=== PATIENT | female | born 1995 | race Caucasian/White ===

== ENCOUNTER 2021-02-01 14:18 | Emergency (ER) | payer OTHER, SELFPAY ==
[2021-02-01 14:25] VITALS: BP 103/64; PULSE 76; RESP 14; TEMP 37.3; O2SAT 100
--- NOTE | 2021-02-01 14:46 | ED.SKABFB ---
HPI - Skin/Abscess/Foreign Bdy General Chief complaint: Skin/Abscess/Foreign Body Stated complaint: bug bite or sting Time Seen by Provider: 02/01/21 14:31 Source: patient and RN notes reviewed Mode of arrival: ambulatory Limitations: no limitations History of Present Illness HPI narrative: Patient presents today complaining of a possible wasp sting to her right lower leg that was sustained yesterday. Patient applied clear fingernail cypriot to help with the itching, which should provide some relief. She reports some burning surrounding the sting. She has not tried any other [id number] interventions prior to arrival. complaint: insect bite/sting Related Data Home Medications Medication Instructions Recorded Confirmed escitalopram oxalate 10 mg PO DAILY 02/01/21 02/01/21 vit-ferrous sulfat-FA 1 tablet PO DAILY 02/01/21 02/01/21 [] Allergies Allergy/AdvReac Type Severity Reaction Status Date / Time No Known Allergies Allergy Verified 02/01/21 14:33 Review of Systems Review of Systems: CONSTITUTIONAL: Denies body aches, fever, chills, or sweats. EYES: Denies visual changes, redness, or discharge. ENT: Denies rhinorrhea, congestion, sore throat, or otalgia. CARDIOVASCULAR: Denies chest pain, palpitations, or edema. RESPIRATORY: Denies cough or dyspnea. GASTROINTESTINAL: Denies abdominal pain, nausea, vomiting, or diarrhea. GENITOURINARY: Denies dysuria or hematuria. SKIN: Denies rash, itching. + Insect sting to right lower leg MUSCULOSKELETAL: Denies back pain, joint pain, or myalgia. NEUROLOGIC: Denies headache, numbness, tingling, or weakness. PSYCH: Denies depression or anxiety. PMFSH Comments At time of signature, I have reviewed and agree with nursing past medical, surgical, social and family history unless otherwise noted. Please see nursing chart for further information. There is no relevant family history pertinent to the presenting complaint Exam Narrative: GENERAL: Well-appearing, well-nourished, and in no acute distress. HEAD: Normocephalic, atraumatic. EYES: EOMI. No redness or drainage. Conjunctivae normal. ENT: Mucous membranes pink and moist. NECK: Normal AROM. CHEST: No respiratory distress. EXTREMITIES: Normal range of motion. No edema. SKIN: Warm, dry, no rash. Capillary refill normal. Normal skin turgor. 0.5 x 1 cm area of erythema and induration to the right lateral lower leg with surrounding 6 x 7 cm area of localized edema and erythema. No fluctuance noted. Nontender to palpation. NEURO: No focal deficits. Alert and oriented x3. Gait steady. PSYCH: Normal affect. No signs of depression or anxiety. Course Vital Signs Vital signs: Vital Signs Temperature 99.2 F 02/01/21 14:25 Pulse Rate 76 02/01/21 14:25 Respiratory Rate 14 02/01/21 14:25 Blood Pressure 103/64 02/01/21 14:25 Pulse Oximetry 100 02/01/21 14:25 Temperature 99.2 F 02/01/21 14:25 Pulse Rate 76 02/01/21 14:25 Respiratory Rate 14 02/01/21 14:25 Blood Pressure 103/64 02/01/21 14:25 Pulse Oximetry 100 02/01/21 14:25 Reviewed MDM - Skin/Abscess/Foreign Bdy Differential Diagnosis Differential diagnosis: Likely urticaria, cellulitis, insect bites, impetigo and contact dermatitis Critical Care Time Critical Care Time Critical Care Time: No Discharge Plan Discharge Clinical Impression: Insect sting Qualifiers: Encounter type: initial encounter Injury intent: accidental or unintentional Qualified Code(s): T63.481A - Toxic effect of venom of other arthropod, accidental (unintentional), initial encounter Patient Disposition: Home, Self-Care Condition: Stable Instructions: Insect Bite or Sting (ED) Additional Instructions: Please use the triamcinolone cream on your insect sting as prescribed. Take some Benadryl to help with the burning, itching, and swelling. Follow-up with your PCP with any concerns. Patient Language: Wolof P
== END 2021-02-01 14:52 | disposition home or self-care (01) ==
PROVIDERS: Emergency Provider Nurse Practitioner
DX: T63.461A Toxic effect of venom of wasps, accidental (unintentional), initial encounter (principal); F41.9 Anxiety disorder, unspecified; F32.9 Major depressive disorder, single episode, unspecified
CPT/HCPCS: 99203; G0463

== ENCOUNTER 2022-04-29 16:19 | Emergency (ER) | payer OTHER, SELFPAY ==
[2022-04-29 16:26] VITALS: BP 129/72; PULSE 85; RESP 14; TEMP 36.9; O2SAT 100
--- NOTE | 2022-04-29 16:28 | ED.NAVMDI ---
HPI - Nausea/Vomiting/Diarrhea General Chief complaint: Nausea/Vomiting/Diarrhea Stated complaint: abdominal pain Time Seen by Provider: 04/29/22 16:28 Source: patient and RN notes reviewed History of Present Illness HPI Narrative: patient is a 27-year-old female who presents to the Urgent Care with complaints of abdominal discomfort. Patient states that she has chronic constipation has been sometime since she has had normal bowel movement. Patient states the symptoms are consistent with her constipation past. States that it started 3 days ago and she has been taking Ex-Lax. Patient states that she has not had any fevers, nausea, vomiting or diarrhea. No other acute complaints. No acute distress noted. Patient aware of the plan care. Some parts of this dictation were generated by voice recognition software and may contain typographical and/or grammatical inaccuracies. Related Data Home Medications Medication Instructions Recorded Confirmed escitalopram oxalate 10 mg tablet 10 mg PO DAILY 02/01/21 02/01/21 Allergies Allergy/AdvReac Type Severity Reaction Status Date / Time No Known Allergies Allergy Verified 02/01/21 14:33 Review of Systems Review of Systems: CONSTITUTIONAL: Denies fever, chills, or sweats. EYES: Denies visual changes, redness, or discharge. ENT: Denies rhinorrhea, congestion, sore throat, or otalgia. CARDIOVASCULAR: Denies chest pain, palpitations, or edema. RESPIRATORY: Denies cough or dyspnea. GASTROINTESTINAL: Reports of chronic constipation abdominal discomfort GENITOURINARY: Denies dysuria or hematuria. SKIN: Denies rash or itching. MUSCULOSKELETAL: Denies back pain, joint pain, or myalgia. NEUROLOGIC: Denies headache, numbness, or weakness. All other systems reviewed are negative, except as documented in HPI. PMFSH Comments At the time of my signature, I reviewed and agree with the nursing past medical, surgical, social, and family history. There is no relevant family history pertinent to the patient complaint. Exam Narrative: GENERAL: This is a well-nourished, well-developed patient, in no apparent distress. HEAD: normocephalic, atraumatic. EYES: PERRL. Sclera clear/white. Vision is grossly intact. EARS: External ears normal NOSE: External nose normal with no obvious nasal discharge, nares without redness, no rhinorrhea. THROAT: Mucous membranes moist NECK: Neck supple CARDIOVASCULAR: Regular rate and rhythm without murmurs, gallops, or rubs. RESPIRATORY: Clear to auscultation. Breath sounds equal bilaterally. No wheezes, rales, or rhonchi. GASTROINTESTINAL: Abdomen soft, mild diffuse tenderness, nondistended. Bowel sounds are active. SKIN: warm, intact with no suspicious lesions or rash, good texture and turgor. NEURO: awake, alert, and oriented to person, place and time. There were no obvious focal neurologic abnormalities. EXTREMITIES: No clubbing, cyanosis, or edema. Course Course Level of Care: Express Care Visit Vital Signs Vital signs: Vital Signs Temperature 98.4 F 04/29/22 16:26 Pulse Rate 85 04/29/22 16:26 Respiratory Rate 14 04/29/22 16:26 Blood Pressure 129/72 04/29/22 16:26 Pulse Oximetry 100 04/29/22 16:26 Oxygen Delivery Room Air 04/29/22 16:26 Temperature 98.4 F 04/29/22 16:26 Pulse Rate 85 04/29/22 16:26 Respiratory Rate 14 04/29/22 16:26 Blood Pressure 129/72 04/29/22 16:26 Pulse Oximetry 100 04/29/22 16:26 Oxygen Delivery Room Air 04/29/22 16:26 reviewed MDM - Nausea/Vomiting/Diarrhea MDM Narrative Medical decision making narrative: advised patient to stop the Ex-Lax intake either daily MiraLax and or Dulcolax for relief. If you develops any increase in symptoms associated with nausea, vomiting, extreme pain -go to the emergency room. Considering her symptoms are consistent with your chronic constipation, ER visit is not necessary at this time however increased pain and does warrant emergency r
== END 2022-04-29 16:50 | disposition home or self-care (01) ==
PROVIDERS: Emergency Provider Nurse Practitioner Family
DX: K59.00 Constipation, unspecified (principal); F41.9 Anxiety disorder, unspecified; F32.A Depression, unspecified
CPT/HCPCS: 99211; G0463

== ENCOUNTER 2022-05-10 14:15 | Outpatient (NON) | payer OTHER, SELFPAY | END 2022-05-10 14:16 | disposition home or self-care (01) | PROVIDERS: PCP Emergency Medicine; Visit Provider Emergency Medicine | DX: R35.0 Frequency of micturition (principal) | CPT/HCPCS: 87086; 87088 ==

== ENCOUNTER 2022-06-15 16:59 | Emergency (ER) | payer OTHER, SELFPAY ==
[2022-06-15 17:03] VITALS: BP 111/78; PULSE 82; RESP 16; TEMP 36.8; O2SAT 100
--- NOTE | 2022-06-15 17:10 | ED.URI ---
HPI - URI/Sore Throat General Chief Complaint: Upper Respiratory Infection Stated Complaint: flu symptoms Time Seen by Provider: 06/15/22 17:21 Source: patient and RN notes reviewed Mode of arrival: ambulatory Limitations: no limitations History of Present Illness HPI Narrative: 27-year-old female presents with concern for 2 day history of headache, nausea, vomiting, general malaise. Reports [id number] medications without relief. She denies fever, aches, chills, sweats,, sore throat MD elicited complaint: nasal congestion Related Data Allergies Allergy/AdvReac Type Severity Reaction Status Date / Time latex Allergy Severe Hives Verified 05/25/22 08:59 Review of Systems Review of Systems: CONSTITUTIONAL: Reports malaise. Denies chills, sweats, or fever. EYES: Denies visual changes, redness, or discharge. ENT: Reports rhinorrhea. Denies congestion, sinus pain, otalgia and sore throat. CARDIOVASCULAR: Denies chest pain, palpitations, or edema. RESPIRATORY: Denies cough. Denies dyspnea. GASTROINTESTINAL: Denies abdominal pain, nausea, vomiting, diarrhea SKIN: Denies rash or itching. MUSCULOSKELETAL: Reports myalgia. NEUROLOGIC: Reports headache. All systems reviewed & are unremarkable except as noted in HPI and below PMFSH Past Medical History Medical History Anxiety Social History Social History (Updated 05/25/22 @ 09:01 by Gogo Fernando MA) Social History: Caffeine-coffee Smoking status: Current every day smoker Tobacco type: e-cigarettes/vaping Second hand tobacco smoke exposure: Yes Alcohol intake: never Lack of Transportation: No Lack of Food: Never True Current Housing: I Have Housing Concerned About Future Housing: No Difficulty Paying Gas/Electric Bills: No Difficulty Paying for Meds: No Currently Unemployed: No Education: Don't Know Difficulty w/ Childcare or Family Care: No Comments At time of signature, agree with nursing past medical, surgical, social and family history. There is no relevant family history pertinent to the presenting complaint Exam Narrative: GENERAL: Well-appearing, well-nourished, and in no acute distress. HEAD: Normocephalic EYES: PERRLA, conjunctivae clear ENT: Nares clear, clear discharge. Mucous membranes moist. TM pearly [place] with dull light reflex bilaterally; no tragal tenderness. Oropharynx not erythematous without lesions. Tonsils not enlarged and without exudate, no drooling, no hoarseness, no trismus, uvula midline. NECK: Supple. No lymphadenopathy CHEST: Clear to auscultation, breath sounds equal. No wheezing, rhonchi, rales, or stridor. No respiratory distress, speaks in full sentences. HEART: Regular rate and rhythm. No murmur heard. SKIN: Warm, dry, no rash. NEURO: Alert and oriented x3. PSYCH: Normal mood and affect Course Course Emergency Course: Patient is aware of diagnosis, understands and agrees to treatment plan. Anticipatory guidance given. Patient agrees to follow-up as directed and is aware of reasons to seek care at the emergency department. Portions of this record may have been created with voice recognition software Level of Care: Express Care Visit Vital Signs Vital signs: Vital Signs Temperature 98.2 F 06/15/22 17:03 Pulse Rate 82 06/15/22 17:03 Respiratory Rate 16 06/15/22 17:03 Blood Pressure 111/78 06/15/22 17:03 Pulse Oximetry 100 06/15/22 17:03 Oxygen Delivery Room Air 06/15/22 17:03 Temperature 98.2 F 06/15/22 17:03 Pulse Rate 82 06/15/22 17:03 Respiratory Rate 16 06/15/22 17:03 Blood Pressure 111/78 06/15/22 17:03 Pulse Oximetry 100 06/15/22 17:03 Oxygen Delivery Room Air 06/15/22 17:03 Reviewed. MDM - URI/Sore Throat MDM Narrative Medical decision making narrative: Differential diagnosis considered: Painter virus, strep pharyngitis, allergic rhinitis, upper respiratory tract infection, sinusit
== END 2022-06-15 17:48 | disposition home or self-care (01) ==
PROVIDERS: Emergency Provider Nurse Practitioner
DX: J11.1 Influenza due to unidentified influenza virus with other respiratory manifestations (principal); Z20.822 Contact with and (suspected) exposure to COVID-19; F17.290 Nicotine dependence, other tobacco product, uncomplicated
CPT/HCPCS: 87426; 87804; 99213; C9803; G0463

== ENCOUNTER 2022-06-19 15:19 | Emergency (ER) | payer OTHER, SELFPAY ==
[2022-06-19 15:26] VITALS: BP 104/68; PULSE 89; RESP 16; TEMP 36.2; O2SAT 100
--- NOTE | 2022-06-19 16:15 | ED.GENADULT ---
HPI - General Adult General Chief complaint: Nausea/Vomiting/Diarrhea Stated complaint: nausea Time Seen by Provider: 06/19/22 16:07 Source: patient, RN notes reviewed and old records reviewed Mode of arrival: ambulatory Limitations: no limitations History of Present Illness HPI narrative: 27 year old female who presents to [facility] care with complaints of upper epigastric discomfort, stomach queasy ith nausea and decreased appetite for the past 3-4 days. Patient reports that she has been taking Zofran for her nausea. Patient denies any sore throat or cough or any known fevers, chills or sweats or any body aches. Patient states that she has had COVID vaccinations and also flu shot.Was seen previously for flu like symptoms and tested negative for influenza and COVID. MD complaint: epigastric discomfort, nausea, stomach queasy Onset (ago): day(s) (3-4) Location: abdomen (upper epigastric) Treatments prior to arrival: other (Zofran) Related Data Allergies Allergy/AdvReac Type Severity Reaction Status Date / Time latex Allergy Severe Hives Verified 05/25/22 08:59 Review of Systems Review of Systems: CONSTITUTIONAL: Denies fever, chills, or sweats. ENT: Denies rhinorrhea, congestion, sore throat, or otalgia. CARDIOVASCULAR: Denies chest pain, palpitations, or edema. RESPIRATORY: Denies cough or dyspnea. GASTROINTESTINAL: Reports epigastric abdominal pain, nausea,no vomiting, diarrhea. GENITOURINARY: Denies dysuria or hematuria. SKIN: Denies rash or itching. MUSCULOSKELETAL: Denies back pain, joint pain, or myalgia. NEUROLOGIC: Denies headache, numbness, or weakness. All systems reviewed & are unremarkable except as noted in HPI and below PMFSH Past Medical History Medical History Anxiety Social History Social History (Updated 05/25/22 @ 09:01 by Gogo Fernando MA) Social History: Caffeine-coffee Smoking status: Current every day smoker Tobacco type: e-cigarettes/vaping Second hand tobacco smoke exposure: Yes Alcohol intake: never Lack of Transportation: No Lack of Food: Never True Current Housing: I Have Housing Concerned About Future Housing: No Difficulty Paying Gas/Electric Bills: No Difficulty Paying for Meds: No Currently Unemployed: No Education: Don't Know Difficulty w/ Childcare or Family Care: No Comments At time of signature, agree with nursing past medical, surgical, social and family history. There is no relevant family history pertinent to the presenting complaint Exam Narrative: GENERAL: Well-appearing, well-nourished, and in no acute distress. HEAD: Normocephalic, atraumatic. EYES: PERRLA, conjunctivae clear, and EOMI. ENT: Nares clear. Mucous membranes moist. Oropharynx without edema, erythema, or lesions. Tonsils not enlarged and without exudate. NECK: Supple. No lymphadenopathy CHEST: Speaks in full sentences. No respiratory distress. HEART: Regular rate and rhythm. ABDOMEN: Soft, flat, nondistended. No guarding, rebound tenderness, or rigid. No pulsatilla masses. Bowel sounds present in all four quadrants. No organomegaly. Negative Gold?s sign. No periumbilical tenderness. No Supra public tenderness or distension.No McBurney point tenderness. Good femoral pulses bilaterally. No hernia noted. No scars or surface trauma. States epigastric discomfort with nausea no vomiting. SKIN: Warm, dry, no rash. NEURO:? Alert and oriented x3. PSYCH: Normal mood and affect Course Course Emergency Course: Patient is aware of diagnosis, understands and agrees to treatment plan.? Anticipatory guidance given.? Patient agrees to follow-up as directed and is aware of reasons to seek care at the emergency department. Portions of this record may have been created with voice recognition software Level of Care: Express Care Visit Vital Signs Vital signs: Vital Signs Temperature 36.2 C L 06/19/22 15:26 Pulse Rate 89
== END 2022-06-19 16:46 | disposition home or self-care (01) ==
PROVIDERS: Emergency Provider Registered Nurse
DX: K21.9 Gastro-esophageal reflux disease without esophagitis (principal); F17.290 Nicotine dependence, other tobacco product, uncomplicated
CPT/HCPCS: 99213; G0463

== ENCOUNTER 2022-09-09 14:48 | Emergency (ER) | payer OTHER, SELFPAY ==
[2022-09-09 15:02] VITALS: BP 126/69; PULSE 83; RESP 16; TEMP 37.3; O2SAT 100
--- NOTE | 2022-09-09 16:10 | ED.URI ---
HPI - URI/Sore Throat General Chief Complaint: Upper Respiratory Infection Stated Complaint: Skin Sore/Sore Throat/Congestion Time Seen by Provider: 09/09/22 16:05 Source: patient, RN notes reviewed and old records reviewed Mode of arrival: ambulatory Limitations: no limitations History of Present Illness HPI Narrative: 27 year old female who presents to [facility] care with complaints of bilateral eye drainage which is greenish, cough, sinus congestion and drainage,sore throat for 2 days, ear pain on right for the past day. Patient reports that she has no known fevers chills or sweats, denies any nausea or vomiting or any known ill contacts.Patient reports that she has taken Claritin for her symptoms. MD elicited complaint: rhinorrhea, nasal congestion and other (eye drainage) Pertinent past history: seasonal allergies and other (eye surgery) Onset (ago): day(s) (2) Pain scale (0-10): 7 Able to tolerate fluids by mouth: Yes Treatments prior to arrival: other (claritin) Related Data Home Medications Medication Instructions Recorded Confirmed vits 75-iron 28 mg-folic 1 pkg PO 09/09/22 acid 800 mcg-omega3 440 mg oral pack Allergies Allergy/AdvReac Type Severity Reaction Status Date / Time latex Allergy Severe Hives Verified 09/09/22 15:05 Review of Systems Review of Systems: CONSTITUTIONAL: Denies malaise, chills, sweats, or fever. EYES: Denies visual changes,reports bilateral eye redness, and greenish discharge. ENT: Reports rhinorrhea, congestion, sinus pain, right otalgia, sore throat. CARDIOVASCULAR: Denies chest pain, palpitations, or edema. RESPIRATORY: Reports occasional cough.? Denies dyspnea. GASTROINTESTINAL: Denies abdominal pain, nausea, vomiting, diarrhea SKIN: Denies rash or itching. MUSCULOSKELETAL: Denies myalgia. NEUROLOGIC: Denies headache. All systems reviewed & are unremarkable except as noted in HPI and below PMFSH Past Medical History Medical History (Updated 09/11/22 @ 20:01 by Steffanie Craft NP) Anxiety Ear infection History of dental problems Surgical History Surgical History (Updated 09/11/22 @ 19:53 by Steffanie Craft NP) H/O eye surgery age 7 Social History Social History (Updated 05/25/22 @ 09:01 by Gogo Fernando MA) Social History: Caffeine-coffee Smoking status: Current every day smoker Tobacco type: e-cigarettes/vaping Second hand tobacco smoke exposure: Yes Alcohol intake: never Lack of Transportation: No Lack of Food: Never True Current Housing: I Have Housing Concerned About Future Housing: No Difficulty Paying Gas/Electric Bills: No Difficulty Paying for Meds: No Currently Unemployed: No Education: Don't Know Difficulty w/ Childcare or Family Care: No Comments At time of signature, agree with nursing past medical, surgical, social and family history. There is no relevant family history pertinent to the presenting complaint Exam Narrative: GENERAL: Well-appearing, well-nourished, and in no acute distress. HEAD: Normocephalic EYES: PERRLA, conjunctivae red with green drainage denies any visual changes. ENT: Nares clear, turbinates edematous and erythematous, yellow green drainage. Mucous membranes moist. TM pearly [place] with dull light reflex bilaterally; no tragal tenderness. Oropharynx erythematous without lesions. Tonsils not enlarged, red and without exudate, no drooling, no hoarseness, no trismus, uvula midline.post nasal drainage NECK: Supple. No lymphadenopathy CHEST: Clear to auscultation, breath sounds equal. No wheezing, rhonchi, rales, or stridor. No respiratory distress, speaks in full sentences.dry cough, SAO2 100% on room air HEART: Regular rate and rhythm. No murmur heard. SKIN: Warm, dry, no rash. NEURO: Alert and oriented x3. PSYCH: Normal mood and affect Course Course Emergency Course: Patient is aware of diagnosis, understands and agrees to treatment plan.?
== END 2022-09-09 16:43 | disposition home or self-care (01) ==
PROVIDERS: Emergency Provider Registered Nurse; PCP Family Medicine
DX: H66.91 Otitis media, unspecified, right ear (principal); H10.9 Unspecified conjunctivitis; F17.290 Nicotine dependence, other tobacco product, uncomplicated
CPT/HCPCS: 99213; G0463

== ENCOUNTER 2023-06-22 11:09 | Observation (INO) | payer OTHER, SELFPAY ==
[2023-06-22 11:32] VITALS: TEMP 36.6
[2023-06-22 11:36] VITALS: BP 108/64; PULSE 86
[2023-06-22 12:00] VITALS: BP 105/68; PULSE 87
[2023-06-22 12:01] VITALS: BMI 25.0
--- NOTE | 2023-06-22 12:02 | OBADM ---
This patient, Jennifer Wang, admitted to the OB room Labor/Delivery/Recovery 103 for observation. Patient/family oriented to hospital policies and general routines including ID bracelet, bed and alarms, visiting hours, pain management, procedures, bathroom and other care routines, personal items, smoking policy, room service/diet, and visiting hours. Patient/Family are encouraged to report perceived risks to care and to ask questions if they do not understand what they are told or what they should do.
--- NOTE | 2023-06-23 10:07 | PM.OBTRLD ---
OB - Triage/Final Diagnosis Visit Information Date of evaluation: 06/22/23 Reason for evaluation: threatened labor Comments/Additional reasons for admission: I have assessed the risk for this patient, Jennifer Wang, and determined that she would benefit from observation care. Evaluation Vital signs: Vital Signs - 24 hr 06/22/23 11:36 06/22/23 12:00 06/22/23 11:32 Temperature 97.8 F Pulse Rate 86 87 Blood Pressure 108/64 105/68
== END 2023-06-22 12:45 | disposition home or self-care (01) ==
PROVIDERS: Admitting Provider Student in an Organized Health Care Education/Training Program; Visit Provider Student in an Organized Health Care Education/Training Program
DX: O47.1 False labor at or after 37 completed weeks of gestation (principal); Z3A.38 38 weeks gestation of pregnancy
CPT/HCPCS: G0378; G0379

== ENCOUNTER 2023-10-10 13:22 | Emergency (ER) | payer OTHER, SELFPAY ==
[2023-10-10 13:34] VITALS: BP 105/69; PULSE 83; RESP 18; TEMP 37.2; O2SAT 100
--- NOTE | 2023-10-10 13:49 | ED.GENADULT ---
HPI - General Adult General Chief complaint: Eye Problems Stated complaint: Eye Problem Source: patient, RN notes reviewed and old records reviewed Mode of arrival: ambulatory Limitations: no limitations History of Present Illness HPI narrative: 28-year-old female presents to [facility] with complaints redness, drainage, irritation to both eyes patient also states has a bump on right lower lid patient states symptoms started 2-3 days ago. Patient has not tried anything at home. Related Data Allergies Allergy/AdvReac Type Severity Reaction Status Date / Time latex Allergy Severe Hives Verified 10/10/23 13:51 Review of Systems Constitutional: Constitutional: Reports no additional constitutional complaints, Denies body ache(s), Denies chills, Denies fatigue, Denies fever(s) and Denies headache(s) Eyes: Eyes: Reports as per HPI, Denies blurry vision, Denies exophthalmos, Denies change in vision, Reports eye discharge, Reports irritation and Reports itchy eyes ENT: Reports system reviewed and no additional complaints, except as documented, Denies vertigo, Denies dizziness, Denies ear discharge, Denies otalgia, Denies facial pain, Denies headache(s), Denies nasal congestion, Denies nasal discharge, Denies sinus pain, Denies sinus pressure and Denies sore throat Cardiovascular: Cardiovascular: Reports no additional cardiovascular complaints, Denies chest pain, Denies chest pain at rest, Denies rapid heart rate and Denies dyspnea Respiratory: Respiratory: Reports no additional respiratory complaints, Denies chest congestion, Denies cough, Denies pain on inspiration, Denies pain with cough and Denies dyspnea Gastrointestinal: Gastrointestinal: Denies abdominal pain, Denies diarrhea, Denies nausea and Denies vomiting Integumentary/Breasts: Skin/Breast: Denies rash Neurologic: Reports system reviewed and no additional complaints, except as documented, Denies vertigo, Denies dizziness and Denies headache(s) Endocrine: Endocrine: Denies fatigue PMFSH Past Medical History Medical History Anxiety Ear infection History of dental problems Surgical History Surgical History H/O eye surgery age 7 Social History Social History Social History: Caffeine-coffee Smoking status: Current every day smoker Tobacco type: e-cigarettes/vaping Second hand tobacco smoke exposure: Yes Alcohol intake: never Lack of Transportation: No Lack of Food: Never True Current Housing: I Have Housing Concerned About Future Housing: No Difficulty Paying Gas/Electric Bills: No Difficulty Paying for Meds: No Currently Unemployed: No Education: Don't Know Difficulty w/ Childcare or Family Care: No Comments At the time of my signature, I reviewed and agree with the nursing past medical, surgical, social, and family history. There is no relevant family history pertinent to the patient complaint. Exam Const: General: cooperative, healthy appearing, no acute distress and well nourished Nutritional Appearance: well nourished Orientation/consciousness: patient oriented x3 Limitations: no limitations HENMT: Head: normal to inspection and normocephalic Ears: external ears normal Face/Nose/Sinus: normal facial exam Face and sinus: normal facial exam Mouth: Yes Normal oral and palatal mucosa present, Yes oropharynx normal and Yes moist mucous membranes Eyes: General: appearance normal, both eyes and all related structures Sclera: sclerae normal Pupils: Equal, round and reactive pupils present Resp: Effort & Inspection: normal respiratory effort, able to speak in complete sentences, no audible wheezes, no cough, no respiratory distress and no retractions Skin: General skin exam: normal color and no rashes or lesions noted Neuro: General: patient oriented x3 Cranial
== END 2023-10-10 13:56 | disposition home or self-care (01) ==
PROVIDERS: Emergency Provider Registered Nurse; PCP Family Medicine
DX: H00.012 Hordeolum externum right lower eyelid (principal); H10.33 Unspecified acute conjunctivitis, bilateral; F17.290 Nicotine dependence, other tobacco product, uncomplicated
CPT/HCPCS: 99213; G0463

== ENCOUNTER 2023-12-13 11:41 | Emergency (ER) | payer OTHER, SELFPAY ==
--- NOTE | ~2023-12-13 | XR_ITS ---
EXAMINATION: XR knee RT min 4V DATE: 12/13/2023 12:11 INDICATION: Generalized right knee pain post twisting injury TECHNIQUE: Anteroposterior, 2 oblique and crosstable lateral views of the right knee were obtained COMPARISON: None. FINDINGS: Alignment is normal. No fracture. Joint spaces appear normal on nonweightbearing imaging with no ost eophytosis. No joint effusion/layering lipohemarthrosis. Soft tissues are unremarkable. IMPRESSION: 1. Normal right knee radiographs. Reviewed, dictated and finalized at location B.
[2023-12-13 11:45] VITALS: BP 127/77; PULSE 108; RESP 18; TEMP 37.1; O2SAT 99
--- NOTE | 2023-12-13 12:39 | ED.LOWEXIN ---
HPI - Extremity Injury (Lower) General Chief Complaint: Extremity Injury, Lower Stated Complaint: right knee pain Time Seen by Provider: 12/13/23 12:15 Source: patient, RN notes reviewed and old records reviewed Mode of arrival: ambulatory Limitations: no limitations History of Present Illness HPI Narrative: 28 year old female presents to [facility] care with complaints of right knee pain. Patient reports that 2 weeks ago she stepped in a hole while walking in the grass and her right knee turned outward. She states for the past 1.5 weeks she has had some pain to her anterior knee with weight bearing and her knee is sore to palpation.. Patient has not used any ice to her knee states has taken some Ibuprofen for her discomfort MD complaint: knee injury Onset (ago): week(s) (pain for 1.5 weeks) Injury: Right: knee Type of Injury: other (twisting motion) Place: street/outdoors Severity scale (1-10): 6 Exacerbating factors: weight bearing Treatments prior to arrival: NSAIDS Related Data Home Medications Medication Instructions Recorded Confirmed medroxyprogesterone 150 mg/mL 150 mg IM [id number] 12/13/23 12/13/23 intramuscular suspension Allergies Allergy/AdvReac Type Severity Reaction Status Date / Time latex Allergy Severe Hives Verified 12/13/23 11:54 Review of Systems Review of Systems: CONSTITUTIONAL: Denies fever, chills, or sweats. EYES: Denies visual changes, redness, or discharge. ENT: Denies rhinorrhea, congestion, sore throat, or otalgia. CARDIOVASCULAR: Denies chest pain, palpitations, or edema. RESPIRATORY: Denies cough or dyspnea. GASTROINTESTINAL: Denies abdominal pain, nausea, vomiting, or diarrhea. GENITOURINARY: Denies dysuria or hematuria. SKIN: Denies rash or itching. MUSCULOSKELETAL: Denies back pain, positive for right knee pain, or myalgia. NEUROLOGIC: Denies headache, numbness, or weakness. PSYCHIATRIC: Denies anxiety or depression. All systems reviewed & are unremarkable except as noted in HPI and below PMFSH Past Medical History Medical History Anxiety Ear infection History of dental problems Surgical History Surgical History H/O eye surgery age 7 Social History Social History Social History: Caffeine-coffee Smoking status: Current every day smoker Tobacco type: e-cigarettes/vaping Second hand tobacco smoke exposure: Yes Alcohol intake: never Lack of Transportation: No Lack of Food: Never True Current Housing: I Have Housing Concerned About Future Housing: No Difficulty Paying Gas/Electric Bills: No Difficulty Paying for Meds: No Currently Unemployed: No Education: Don't Know Difficulty w/ Childcare or Family Care: No Comments At time of signature, agree with nursing past medical, surgical, social and family history. There is no relevant family history pertinent to the presenting complaint Exam Narrative: GENERAL: Well-appearing, well-nourished, and in no acute distress. HEAD: Normocephalic, atraumatic. EYES: PERRLA and EOMI. ENT: Nares clear, no rhinorrhea or epistaxis. Mucous membranes moist. NECK: Supple.no lymphadenopathy CHEST: Clear to auscultation. No respiratory distress.SAO2 99% on room air HEART: Regular rate and rhythm. No murmur heard. Normal peripheral pulses. ABDOMEN: Soft, nontender, nondistended, normal active bowel sounds. EXTREMITIES: Normal range of motion. No edema. Verbalizes pain to her right knee anteriorly with increased pain with ambulation, drawer test negative, no obvious deformity or any swelling to her right knee, patiet has strong right pedal pulse. with no numbness or tingling to right leg or foot. SKIN: Warm, dry, no rash. NEURO: No focal deficits. Alert and oriented x3. Course Course Emergency Course: Patient is aware of diagnosis, understands
== END 2023-12-13 12:54 | disposition home or self-care (01) ==
PROVIDERS: Emergency Provider Registered Nurse; PCP Family Medicine
DX: S83.91XA Sprain of unspecified site of right knee, initial encounter (principal); X50.9XXA Other and unspecified overexertion or strenuous movements or postures, initial encounter; Y93.01 Activity, walking, marching and hiking; F17.290 Nicotine dependence, other tobacco product, uncomplicated
CPT/HCPCS: 73564; 99213; G0463

== ENCOUNTER 2024-03-18 16:35 | Emergency (ER) | payer OTHER, SELFPAY ==
[2024-03-18 16:40] VITALS: BP 133/77; PULSE 80; RESP 16; TEMP 37.1; O2SAT 100
--- NOTE | 2024-03-18 17:21 | ED.DENTAL ---
HPI - Dental/Oral General Chief complaint: Dental/Oral Stated complaint: Jaw Pain Time Seen by Provider: 03/18/24 16:52 Source: patient, RN notes reviewed and old records reviewed Mode of arrival: ambulatory Limitations: no limitations History of Present Illness HPI Narrative: 29 year old female who presents to [facility] care with complaints of left upper jaw pain for the past 5 days. Patient denies any known tooth pain or any gum pain or any broken tooth in left upper jaw area. Patient does not have good dentition but no obvious fractured or caries in teeth of left upper gum area. Patient reports that pain is actually in the jaw area and causes her to have headaches at times and some swelling of her jaw area.. Patient reports that she takes Ibuprofen for her discomfort but she is out of medication and can't afford to buy any at this time. Patient is able to open mouth well without any trismus noted, no crepitus to jaw area noted or acute swelling.Denies any fevers Onset (ago): day(s) (5) Severity scale (1-10): 7 Treatment prior to arrival: oral analgesic Related Data Home Medications Medication Instructions Recorded Confirmed medroxyprogesterone 150 mg/mL 150 mg IM [id number] 12/13/23 12/13/23 intramuscular suspension Allergies Allergy/AdvReac Type Severity Reaction Status Date / Time latex Allergy Severe Hives Verified 12/13/23 11:54 Review of Systems Review of Systems: CONSTITUTIONAL: Denies fever, chills, or sweats. ENT: Denies rhinorrhea, congestion, sore throat, or otalgia.Reports left jaw pain denies it being dental pain, reports is in her left upper jaw that does cause her to have some headache pain at times CARDIOVASCULAR: Denies chest pain, palpitations, or edema. RESPIRATORY: Denies cough or dyspnea. SKIN: Denies rash or itching. MUSCULOSKELETAL: Denies myalgia. NEUROLOGIC: intermittent headache All systems reviewed & are unremarkable except as noted in HPI and below PMFSH Past Medical History Medical History Anxiety Ear infection History of dental problems Surgical History Surgical History H/O eye surgery age 7 Social History Social History Social History: Caffeine-coffee Smoking status: Current every day smoker Tobacco type: e-cigarettes/vaping Second hand tobacco smoke exposure: Yes Alcohol intake: never Lack of Transportation: No Lack of Food: Never True Current Housing: I Have Housing Concerned About Future Housing: No Difficulty Paying Gas/Electric Bills: No Difficulty Paying for Meds: No Currently Unemployed: No Education: Don't Know Difficulty w/ Childcare or Family Care: No Comments At time of signature, agree with nursing past medical, surgical, social and family history. There is no relevant family history pertinent to the presenting complaint Exam Narrative: GENERAL: Well-appearing, well-nourished, and in no acute distress. HEAD: Normocephalic, atraumatic. EYES: PERRLA and EOMI. ENT: Nares clear, no rhinorrhea or epistaxis. Mucous membranes moist. Patient does have poor dentition but denies any dental pain to left upper jaw area, reports that pain is in her TMJ joint area and pain does radiate to her head at times causing her headaches, states usually helped by taking Ibuprofen. but is out. Patient has no trismus noted or any Evan angina NECK: Supple.no lymphadenopathy CHEST: Clear to auscultation. No respiratory distress. SAO2 100% on room air HEART: Regular rate and rhythm. No murmur heard. Normal peripheral pulses. SKIN: Warm, dry, no rash. NEURO: No focal deficits. Alert and oriented x3. Course Course Emergency Course: Patient is aware of diagnosis, understands and agrees to treatment plan. Anticipatory guidance given. Patient agrees to follow-up as directed and is aware of
== END 2024-03-18 17:37 | disposition home or self-care (01) ==
PROVIDERS: Emergency Provider Registered Nurse
DX: M26.622 Arthralgia of left temporomandibular joint (principal); F17.290 Nicotine dependence, other tobacco product, uncomplicated
CPT/HCPCS: 99213; G0463

== ENCOUNTER 2024-09-07 10:33 | Emergency (ER) | payer OTHER, SELFPAY ==
[2024-09-07 10:43] VITALS: BP 125/89; PULSE 76; RESP 16; TEMP 36.4; O2SAT 100
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
--- OUTSIDE RECORDS SUMMARY | 2024-09-07 11:42 | XMS_ITS ---
Author Organization [facility] Address [address] [place] [address] Care Team Providers Care Respooler Name Role Phone Angelica Lundberg Primary Care Provider REASON FOR VISIT CCS Encounters Encounter Location Date Provider Diagnosis [address] [place] [address] 09/20/2023 Angelica Lundberg Plan Of Treatment No Information Progress Notes * ANEGLITA RenettaDeshawnOB:1995 (29 yo F)Acc No.[id number]:09/20/2023 UNLOCKED PROGRESS NOTE Patient: Kash LIMAn :1995 A ge:28 Y S ex:Female Address:[address] , [place], [address] * * Date:
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
--- OUTSIDE RECORDS SUMMARY | 2024-09-07 11:42 | XMS_ITS ---
Author Organization [facility] Address [address] [place] [address] Care Team Providers Care Corporate Bond Trader Name Role Phone Tamika Angelica Primary Care Provider Allergies Allergen (clinical drug ingredient) Drug/Non Drug Allergy documented on EMR Reaction Allergy Type Onset Date Status Latex Latex Unknown Allergy Active REASON FOR VISIT New Patient Psych Eval Social History Tobacco Use: Social History Observation Description Date Details (start date - stop date) Never Smoker NA - NA Tobacco Control (Standard) Question Answer Notes Tobacco use: Nonsmoker Problems Problem Type SNOMED Code ICD Code Onset Dates Problem Status W/U Status Risk Notes Problem Learning disorder (1838596) Learning disorder (F81.9) 07/27/2023 Active confirmed Encounters Encounter Location Date Provider Diagnosis [facility] [address] [place] [address] 07/27/2023 Angelica Lundberg Learning disorder F81.9 Assessments Encounter Date Diagnosis (ICD Code) Assessment Notes Treatment Notes Treatment Clinical Notes Section Notes 07/27/2023 Learning disorder (ICD-10 - F81.9) History: Reports hx of depression and anxiety 2-3 years ago during the dissolution of her relationship, 3 of her older children living with their father. She is allowed supervision at her mom's house with her 3 eldest. Currently, on SSI for a Learning Disorder since 2004, hx of IEP and special education classes. Had 4th child Jun 29, 2023 with current lupe. DCFS involvement when in hospital since 2nd day of , currently living with lupe's sister and is under supervision with her baby. Currently, displaced from her home due to the DCFS involvement, denies anything specific happening. Hx of taking depression/anxie ty medication, can not recall which medicine. Appears to have fair medical literacy. Denies hx of any SA/SI/SIB, AVH/paranoia/del usions or trauma sx. Denies hx of abuse. Today's visit: Patient is a 28-year-old female who presents for a psychiatric evaluation over Zo and is located in [place]. Patient is pleasant during conversation. Appears motivated to take care of her baby which she reports is bringing her hayley. She denies feeling any depression or anxiety since having baby, denies any irritability. Denies feeling overwhelmed when taking care of her baby, and that her fiance has been helpful. She is encouraged to keep an emotions journal to help track her feelings for continued insight and self-regulation. She does not meet criteria for any psychiatric disorders or medications at this present time. No acute safety concerns, was provided an opportunity to ask questions and is in agreement with treatment plan. She feels comfortable reaching out for an appointment if she begins to experience depression and anxiety symptoms for further evaluation of medications if needed. Further, agrees to return sooner if symptoms worsen or suicidal or homicidal ideations occur. Plan Of Treatment Treatment Notes Assessment Notes Learning disorder History: Reports hx of depression and anxiety 2-3 years ago during the dissolution of her relationship, 3 of her older children living with their father. She is allowed supervision at her mom's house with her 3 eldest. Currently, on SSI for a Learning Disorder since 2004, hx of IEP and special education classes. Had 4th child Jun 29, 2023 with current lupe. DCFS involvement when in hospital since 2nd day of , currently living with lupe's sister and is under supervision with her baby. Currently, displaced from her home due to the DCFS involvement, denies anything specific happening. Hx of taking depression/anxiety medication, can not recall which medicine. Appears to have fair medical literacy. Denies hx of any SA/SI/SIB, AVH/paranoia/delusions or trauma sx. Denies hx of abuse. Today's visit: Patient is a 28-year-old female who presents for a psychiatric evaluation over Zo and is located in [place]. Patient is pleasant during conversation. Appears motivated to take care of her baby which she reports is bringing her hayley. She denies feeling any depression or anxiety since having baby, denies any irritability. Denies feeling overwhelmed when taking care of her baby, and that her fiance has been helpful. She is encouraged to keep an emotions journal to help track her feelings for continued insight and self-regulation. She does not meet criteria for any psychiatric disorders or medications at this present time. No acute safety concerns, was provided an opportunity to ask questions and is in agreement with treatment plan. She feels comfortable reaching out for an appointment if she begins to experience depression and anxiety symptoms for further evaluation of medications if needed. Further, agrees to return sooner if symptoms worsen or suicidal or homicidal ideations occur. 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 I used to have really bad depression and anxiety where I needed medication,but I don't need that medication now. They wanted me to get reevaluated because someone had called and states they were afraid that my child was in child endangerment. I have to be supervised right now, and before I can go back home I have to get reevaluated . [facility] doesn't know who reported her They said it was anonymous , states she was still in the hospital when baby was 2 days old before we got called on . Has 3 other children that live with their dad. States they had DCFS involvement with other 3 children, me and my ex- would yell, and they got involved because we couldn't get along and my depression was bad and I would cry a lot in front of my kids, he would make fun of me and tell me I'm a bad mom . DCFS had suggested her children live with the father, went to go live with her mom wanted me to do therapy and get retested . States when trying to do therapy with Mikki, stated I wasn't meeting their requirements because the answers I had . T he father baby Omar, they are a couple and engaged, he's not yet . Have been living together pretty much our whole relationship 1.5 year, have been together for 1.5 years. States they get along well. Denies getting into fights or arguments, sometimes we disagree, but nothing bad-bad . Denies ever having any physical violence between, denies any abuse in the relationship. States all her needs are being met. Not currently working, not fully 6 weeks post- yet . States her baby is staying with her sister, right now they are staying in [place], stated we weren't allowed to go back home until DCFS is over with . Living with lupe's sister. Lupe works in [employer], [employer] . States waiting on [employer] services to come in and testing. The baby is currently in house and her lupe's sister has to be there and supervise with the baby, has to watch us and what we're doing . States bonding with baby has been going pretty good, trying to breast feed . Ana. States since has been feeling stable, states will sometimes cry not like I used to, only when things get a little rough with the stress related to DCFS. States when baby is asleep she can clean and do things that I need to do, and nothing gets in the way of that N ot sure how much sleep she is getting she wakes up a lot in the middle of the night . A ppetite is adequate, eating 3 meals a day. Used take Iron. Not taking multivitamins. Currently, on WIC. States handles getting up in the middle of the night well, denies feeling frustrated. States fiance is helpful. Denies any thoughts of or suicide. Concentration has been pretty good . Denies any irritability in general. Denies feeling hopeless/helpless/guilty or worthless. States last time feeling depressed was 2-3 years ago and was her only time feeling depressed, started when she was breaking up. Denies any other depression. D enies any present anxiety, I don't think I have issues with that . Denies excessive worry. Denies any hx of panic attacks. Denies periods of grandiosity. Reports good self-image when her daughter is around. States tries to be more sociable with her family, get up more and do things if they need it and stuff like that . States last time feeling overly anxious was 2-3 years ago during break-up. D enies hx of flashbacks, nightmares, avoidance, activated startle response or hypervigilance. D enies hx of AVH/paranoia * *PERSONAL BACKGROUND HISTORY A buse/Trauma: Denies any hx of abuse, when asked of trauma besides the loss of my kids a few kids ago also had ectopic they caught it in time, had to surgery the same day . E ducation - 11 th grade, dropped out of H.S. Was in special education classes, Had IEPs and stuff . I have SSI now. D evelopmental delays- I don't think so I ncome- currently on SSI, has been on since 2004 for for learning disability. O ccupation - Has worked before, a few times . 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 S ocial - Will talk to mom when supervised with other kids at her mom's house E motional Support - Fiance _ * *ALCOHOL DRUG HISTORY A lcohol - Denies, denies drinking socializing M arijuana - Denies C ocaine - Denies H eroin - Denies F entanyl - Denies M eth - Denies O ther Illicit Drugs - Denies H allucinogens - Denies O TC/Rx drugs - Denies N icotine - used to vape before I got but not currently\ C affeine - I try to drink a little bit of ice coffee but don't want to hurt anything for . _ * *PAST PSYCHIATRIC HX P ast psych provider/therapist: Not currently in therapy, saw a therapist before a couple years ago when with [facility] when it was really bad P sychiatric Diagnoses: Depression, anxiety P ast Psychiatric medications: small quechan white pills, hard to pronounce states it was a medication for depression and anxiety for both, only taking one medication . States last time taking was a few years . States this medication was helpful yes and no, only took it when I needed to . I npatient psych hospitalizations: Denies S uicidal Ideations hx: Denies S uicide Attempt(s) hx: Denies H omicidal Ideation hx: Denies S elf-injurious behavior hx: Denies A ggression hx: Denies. D epression Screening: PHQ-9 L ittle interest or pleasure in doing things?Not at all F eeling down, depressed, or hopeless N ot at all T rouble falling or staying asleep, or sleeping too much N ot at all F eeling tired or having little energy S everal days P oor appetite or overeating N ot at all F eeling bad about yourself or that you are a failure, or have let yourself or your family down N ot at all T rouble concentrating on things, such as reading the newspaper or watching television N ot at all M oving or speaking so slowly that other people could have noticed; or the opposite, being so fidgety or restless that you have been moving around a lot more than usual N ot at all T houghts that you would be better off or of hurting yourself in some way N ot at all T otal Score 1 I nterpretation M inimal Depression S creening: [place] Suicide Severity Rating Scale (LF) D o you want to initiate with S creener form 1 . Wish to be : Have you wished you were or wished you could go to sleep and not wake up? N o 2 . Suicidal Thoughts: Have you actually had any thoughts of killing yourself? N o 6 . Suicide Behaviour: Have you ever done anything,started to do anything, or prepared to end your life? N o G AD-7 Screenin. Feeling nervous, anxious, or on edge : , Not at all-0.? 2. Not being able to stop or control worrying : , Several days-1. 3. Worrying too much about different things : , Several days-1. 4. Trouble sleeping/relaxing : , Not at all-0. 5. Being so restless that it is hard to sit still : , Not at all-0. 6. Becoming easily annoyed or irritable : , Not at all-0.? 7. Feeling afraid, as if something awful might happen : , Not at all-0. EMANUEL-7 Score T otal score : 2 M ood Disorder Questionnaire 12-09-21: Please answer each question to the best of your ability. Questions P lease answer each question to the best of your ability. H as there ever been a time period when you were not your usual self and... Y ou felt so good or hyper that other people thought you were not your normal self or you were so hyper that you got into trouble? N o . Y ou were so irritable that you shouted at people or started fights or arguments? N o . Y ou got much less sleep than usual and found that you didn't really miss it? Y es . ONLY BECAUSE OF THE BABY Y ou felt much more self-confident than usual??Yes . Y ou were more talkative or spoke much faster than usual? N o . T houghts raced through your head or you couldn't slow your mind down? N o . Y ou were so easily distracted by things around you that you had trouble concentrating or staying on track? N o . Y ou had more energy than usual? N o . Y ou were more active or did many more things than usual? N o . Y ou were more social or outgoing than usual, for example, you telephoned friends in the middle of the night? Y es . Y ou were more interested in sex than usual??No . Y ou did things that were usual for you or that other people might have thought were excessive, foolish, or risky? N o . S pending money got you or your family in trouble? N o . I f you checked YES to more than one of the above, have several of these ever happened during the same period of time? Y es . H ow much of a problem did any of these cause you - like being unable to work; having family, money or legal troubles; getting into arguments or fights? N o problems . C SSRS Interpretation and Follow Up Plan: CSSRS Interpretation and Follow Up Plan. CSSRS Interpretation and Follow Up Plan M oderate or High risk requires selection of a follow up plan C SSRS Moderate/high: Warm hand off to Crisis Intervention team P re[facility] follow-up: Action Plans for Clinical Quality Measures: C ervical Cancer Screening: N ot addressed during this visit. See notes for details. H IV Screening: N ot addressed during this visit. See notes for details. . N ew/Follow-up Patient Consult: Consent to treat S danii reviewed [facility] Consent to Treat document with the patient. The patient verbally acknowledged understanding of the document and verbally voluntarily consents to treatment at [facility]. Patient verbally authorizes [facility] to bill for these services. 0 07/27/2023 . S danii reviewed [facility] Consent to treat document with the patient's Parent or Guardian. The patient's parent or guardian verbally acknowledged understanding of the document and verbally voluntarily consents to treatment at [facility]. Parent or Guardian also verbally authorizes [facility] to bill for these services. 0 07/27/2023 C onsent obtained from Cait johnson * ROS: P sych ROS: Constitutional A ll systems negative unless indicated otherwise. E yes D enies. E ars/Nose/Mouth/Throat D enies. R espiratory D enies problems, Denies asthma or COPD. A llergic/Immunologic D enies. C ardiovascular D enies problems, Denies blood relative experiencing sudden at young age. G I D enies problems, Denies liver problems. G U D enies renal problems.. M usculoskeletal D enies tics, tremors, or abnormal movements, Denies problems. N eurological D enies history of seizures, Denies concern. I ntegumentary D enies rashes or pruritis. E ndocrine D enies concern, Denies DM or thyroid dysfunction. H ematological/Lymphatic D enies bleeding or bruising, Denies problems. * Medical History: * Surgical History: D /C * Hospitalization/Major Diagno stic Procedure: c hild [id number] * Family History: F ather: . M other: alive. 1 brother(s) , 1 sister(s) - healthy. 2 son(s) , 2 daughter(s) - healthy. . 3 older children living with their father Denies psychiatric illness in family I don't think . * Social History: P rimary Social History: L iving Arrangement L iving Arrangement: I ndependent Living I s this a supportive environment? Y es Employment Status E mployment Status: U nemployed Due to T obacco Use: T obacco Control (Standard) T obacco use: N onsmoker * Medications: N one * Allergies: L atexno[Allergies Verified] Objective: * Vitals: I nitials: LY, Pain scale:0. * Examination: M ental Status Exam: SENSORIUM AND COGNITION A lert, A&OX4. ATTENTION AND CONCENTRATION N o deficits. APPEARANCE A ppropriate. ATTITUDE AND BEHAVIOR C ooperative , Pleasant. MEMORY A dequate. EYE CONTACT G ood, wearing glasses. AFFECT B road/Full, Euthymic. MOOD E uthymic. SPEECH QUANTITY A ppropriate. SPEECH QUALITY S pontaneous , Appropriate volume. THOUGHT PROCESS C oherent and goal directed. THOUGHT CONTENT N o evidence of delusional content , No reports of paranoia. LANGUAGE A ppropriate- WNL. MOTOR ACTIVITY R elaxed. SUICIDAL IDEATION D enies SI or thoughts of self harm. HOMICIDAL IDEATION D enies homicidal ideation or thoughts of aggression. HALLUCINATIONS D oes not appear to be responding to internal stimuli or seeing hallucinations in the room. INSIGHT F air to Adequate. JUDGMENT F air to Adequate. FUND OF KNOWLEDGE A dequate. ABILITY TO PARTICIPATE IN TREATMENT A dequate. WILLINGNESS TO PARTICIPATE IN TREATMENT A dequate. ? Assessment: * Assessment: 1. L earning disorder - F81.9 (Primary) Plan: * Treatment: * Recommended Wellness and Pre vention Guidelines: * S tatus A lert L ast Done N ext Due A ction Taken N ONCOMPLIANT C ervical cancer screening - 0 07/27/2023 - N ONCOMPLIANT H IV screening - 0 07/27/2023 - * Procedure Codes: * Follow Up: p rn (Reason: as needed) * * ER Sign off status: Completed true * Provider: Cait Lundberg, HNP Date: 07/27/2023 Generated for Oscar mueller/Alejandro/eTransmmemo on: 0 09/07/2024 11:42 AM CDT History and Physical Notes * HPI (History of Present Illness) Category Sub-Category Detail Notes Category Not es New/Follow-up Patient Consult Consent to treat Staff reviewed [facility] Consent to Treat document with the patient. The patient verbally acknowledged understanding of the document and verbally voluntarily consents to treatment at [facility]. Patient verbally authorizes [facility] to bill for these services.: 07/27/2023 . Staff reviewed [facility] Consent to treat document with the patient's Parent or Guardian. The patient's parent or guardian verbally acknowledged understanding of the document and verbally voluntarily consents to treatment at [facility]. Parent or Guardian also verbally authorizes [facility] to bill for these services.: 07/27/2023 Consent obtained from: Jennifer Depression Screening PHQ-9 Little inte rest or pleasure in doing things: Not at all Feeling down, depressed, or hopeless: No t at all Trouble falling or staying asleep, or sl eeping too much: Not at all Feeling tired or having little energy: S everal days Poor appetite or overeating: Not at all Feeling bad about yourself o r that you are a failure, or have let yourself or your family down: Not at all Trouble concentrating on thi ngs, such as reading the newspaper or watching television: Not at all Moving or speaking so slowly that other people could have noticed; or the opposite, being so fidgety or restless that you have been moving around a lot more than usual: Not at all Thoughts that you would be b ju off or of hurting yourself in some way: Not at all Total Score: 1 Interpretation: Minimal Depression EMANUEL-7 Screening 1. Feeling nervous, anxious, or on edg e :, Not at all-0 2. Not being able to stop or control wor rying :, Several days-1 3. Worrying too much about different thi ngs :, Several days-1 4. Trouble sleeping/relaxing :, Not at a ll-0 5. Being so restless that it is hard to sit still :, Not at all-0 6. Becoming easily annoyed or irritable :, Not at all-0 7. 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 I used to have really bad depression and anxiety where I needed medication,but I don't need that medication now. They wanted me to get reevaluated because someone had called and states they were afraid that my child was in child endangerment. I have to be supervised right now, and before I can go back home I have to get reevaluated . States doesn't know who reported her They said it was anonymous , states she was still in the hospital when baby was 2 days old before we got called on . Has 3 other children that live with their dad. States they had DCFS involvement with other 3 children, me and my ex- would yell, and they got involved because we couldn't get along and my depression was bad and I would cry a lot in front of my kids, he would make fun of me and tell me I'm a bad mom . DCFS had suggested her children live with the father, went to go live with her mom wanted me to do therapy and get retested . States when trying to do therapy with [facility], stated I wasn't meeting their requirements because the answers I had . The father baby Omar, they are a couple and engaged, he's not yet . Have been living together pretty much our whole relationship 1.5 year, have been together for 1.5 years. States they get along well. Denies getting into fights or arguments, sometimes we disagree, but nothing bad-bad . Denies ever having any physical violence between, denies any abuse in the relationship. States all her needs are being met. Not currently working, not fully 6 weeks post- yet . States her baby is staying with her sister, right now they are staying in [place], stated we weren't allowed to go back home until DCFS is over with . Living with lupe's sister. 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 States waiting on [facility] services to come in and testing. The baby is currently in house and her lupe's sister has to be there and supervise with the baby, has to watch us and what we're doing . States bonding with baby has been going pretty good, trying to breast feed . Ana. States since has been feeling stable, states will sometimes cry not like I used to, only when things get a little rough with the stress related to DCFS. States when baby is asleep she can clean and do things that I need to do, and nothing gets in the way of that Not sure how much sleep she is getting she wakes up a lot in the middle of the night . Appetite is adequate, eating 3 meals a day. Used take Iron. Not taking multivitamins. Currently, on WIC. States handles getting up in the middle of the night well, denies feeling frustrated. States fiance is helpful. Denies any thoughts of or suicide. Concentration has been pretty good . Denies any irritability in general. Denies feeling hopeless/helpless/guilty or worthless. States last time feeling depressed was 2-3 years ago and was her only time feeling depressed, started when she was breaking up. Denies any other depression. Denies any present anxiety, I don't think I have issues with that . Denies excessive worry. Denies any hx of panic attacks. Denies periods of grandiosity. Reports good self-image when her daughter is around. States tries to be more sociable with her family, get up more and do things if they need it and stuff like that . States last time feeling overly anxious was 2-3 years ago during break-up. Denies hx of flashbacks, nightmares, avoidance, activated startle response or hypervigilance. Denies hx of AVH/paranoia PERSONAL BACKGROUND HISTORY Abuse/Trauma: Denies any hx of abuse, when asked of trauma besides the loss of my kids a few kids ago also had ectopic they caught it in time, had to surgery the same day . Education - 11th grade, dropped out of H.S[employer] Was in special education classes, Had IEPs and stuff . I have SSI now. Developmental delays- I don't think so Income- currently on SSI, has been on since 2004 for for learning disability. Occupation - Has worked before, a few times . Has worked at [employer], [employer], [employer] in a [employer] was her favorite job Legal History - Denies other than DCFS cases Spiritual Affiliation - Denies Relationship status - Fiance, 1.5 years Childhood - pretty good had a good relationship with parents, and they still communicate. Social - Will talk to mom when supervised with other kids at her mom's house Emotional Support - Fiance ALCOHOL DRUG HISTORY Alcohol - Denies, denies drinking socializing Marijuana - Denies Cocaine - Denies Heroin - Denies Fentanyl - Denies Meth - Denies Other Illicit Drugs - Denies Hallucinogens - Denies OTC/Rx drugs - Denies Nicotine - used to vape before I got but not currently\ Caffeine - I try to drink a little bit of ice coffee but don't want to hurt anything for . PAST PSYCHIATRIC HX Past psych provider/therapist: Not currently in therapy, saw a therapist before a couple years ago when with Eva when it was really bad Psychiatric Diagnoses: Depression, anxiety Past Psychiatric medications: small quechan white pills, hard to pronounce states it was a medication for depression and anxiety for both, only taking one medication . States last time taking was a few years . States this medication was helpful yes and no, only took it when I needed to . Inpatient psych hospitalizations: Denies Suicidal Ideations hx: Denies Suicide Attempt(s) hx: Denies Homicidal Ideation hx: Denies Self-injurious behavior hx: Denies Aggression hx: Denies Screening [place] Suicide Severity Rating Scale (LF) Do you want to initiate with: Screener form 1. Wish to be : Have you wished you were or wished you could go to sleep and not wake up?: No 2. Suicidal Thoughts: Have you actually had any thoughts of killing yourself?: No 6. Suicide Behavior Question: Have you ever done anything,started to do anything, or prepared to end your life?: No Mood Disorder Questionnaire 12-09-21 Questions Please answer each question to the best of your ability.: Has there ever been a time period when you were not your usual self and... You felt so good or hyper th at other people thought you were not your normal self or you were so hyper that you got into trouble?: No . You were so irritable that y ou shouted at people or started fights or arguments?: No . You got much less sleep than usual and found that you didn't really miss it?: Yes . ONLY BECAUSE OF THE BABY You felt much more self-confident than u sual?: Yes . You were more talkative or s poke much faster than usual?: No . Thoughts raced through your head or you couldn't slow your mind down?: No . You were so easily distracte d by things around you that you had trouble concentrating or staying on track?: No . You had more energy than usual?: No . You were more active or did many more things than usual?: No . You were more social or outg oing than usual, for example, you telephoned friends in the middle of the night?: Yes . You were more interested in sex than usu al?: No . You did things that were usu al for you or that other people might have thought were excessive, foolish, or risky?: No . Spending money got you or your family in trouble?: No . If you checked YES to more t patel one of the above, have several of these ever happened during the same period of time?: Yes . How much of a problem did an y of these cause you - like being unable to work; having family, money or legal troubles; getting into arguments or fights?: No problems . Do Not Use CSSRS Interpretation and Follow Up Plan CSSRS Interpretation and Follow Up Plan Moderate or High risk requires selection of a follow up plan: CSSRS Moderate/high: Warm hand off to Crisis Intervention team Preventative Health and Wellness follow-up Action Plans for Clinical Quality Measures: Cervical Cancer Screening:: Not addressed during this visit. See notes for details. . HIV Screening:: Not addressed during thi s visit. See notes for details. Examination Category Sub-Category Detail Notes Category Not es Mental Status Exam SENSORIUM AND COGNITION Alert, A&OX 4 ATTENTION AND CONCENTRATION No deficits APPEARANCE Appropriate ATTITUDE AND BEHAVIOR Cooperative , Plea april MEMORY Adequate EYE CONTACT Good, wearing glasse s AFFECT Broad/Full, Euthymic MOOD Euthymic SPEECH QUANTITY Appropriate SPEECH QUALITY Spontaneous , Approp riate volume THOUGHT PROCESS Coherent and goal di rected THOUGHT CONTENT No evidence of delus ional content , No reports of paranoia MOTOR ACTIVITY Relaxed SUICIDAL IDEATION Denies SI or thought s of self harm HOMICIDAL IDEATION Denies homicidal mg ation or thoughts of aggression HALLUCINATIONS Does not appear to b e responding to internal stimuli or seeing hallucinations in the room INSIGHT Fair to Adequate JUDGMENT Fair to Adequate FUND OF KNOWLEDGE Adequate ABILITY TO PARTICIPATE IN TREATMENT Adeq uate WILLINGNESS TO PARTICIPATE IN TREATMENT Adequate LANGUAGE Appropriate- WNL
--- OUTSIDE RECORDS SUMMARY | 2024-09-07 11:42 | XMS_ITS | Referral Summary ---
Author Organization [facility] Address [address] [place] [address] Care Team Providers Care Apparatus Repair Mechanic Name Role Phone Laura Rosario MD Primary Care Provider [phone] Dung Lala MD Unavailable [phone] Allergies Active Allergy Reactions Criticality Noted Date Comments Latex Rash Medium 04/11/2021 Medications sertraline (ZOLOFT) 25 mg tablet Take 1 tablet (25 mg total) by mouth daily 06/23/2022 Active vit 63-ywea-esfju-d montero 27mg iron- 800 mcg-250 mg capsule Take by mouth Active docusate sodium (COLACE) 100 mg capsuleIndicati ons:constipatio n,Stool Softener Take 1 capsule (100 mg total) by mouth 2 (two) times a day 60 capsule 07/01/2023 Active Active Problems Problem Noted Date Diagnosed Date 40 weeks gestation of 06/29/2023 Immunizations Immunization Administration Dates Next Due Varicella 07/01/2023 Social History Tobacco Use Types Packs/Day Years Used Date Smoking Tobacco: Former Vaping 2022 Passive Smoke Exposure: Never Smokeless Tobacco: Never Tobacco Cessation:Counseling Given: No Alcohol Use Standard Drinks/Week Comments Never 0 (1 standard drink = 0.6 oz pur e alcohol) [facility] Utilities Answer Date Recorded In the past 12 months has th e [employer], gas, oil, or water [employer] threatened to shut off services in your home? No 06/29/2023 Humiliation, Afraid, Rape, and Kick questionnair e Answer Date Recorded Within the last year, have y ou been afraid of your partner or ex-partner? No 06/29/2023 Within the last year, have y ou been humiliated or emotionally abused in other ways by your partner or ex-partner? No Within the last year, have y ou been kicked, hit, slapped, or otherwise physically hurt by your partner or ex-partner? No 06/29/2023 Within the last year, have y ou been raped or forced to have any kind of sexual activity by your partner or ex-partner? No 06/29/2023 Social Connection and Isolat ion Panel [NHANES] Answer Date Recorded In a typical week, how many times do you talk on the phone with family, friends, or neighbors? More than three times a week 06/29/2023 How often do you get togethe r with friends or relatives? Once a week 06/29/2023 How often do you attend chur or christian services? Never 06/29/2023 Do you belong to any clubs o r organizations such as denominational groups, unions, fraternal or athletic groups, or school groups? No 06/29/2023 How often do you attend meet ings of the clubs or organizations you belong to? Never 06/29/2023 Are you , , di vorced, , never , or living with a partner? Living with partner 06/29/2023 AUDIT-C Answer Date Recorded Q1: How often do you have a drink containing alcohol? Never 06/29/2023 Q2: How many drinks containi ng alcohol do you have on a typical day when you are drinking? Patient does not drink Q3: How often do you have si x or more drinks on one occasion? Never 06/29/2023 Overall Financial Resource Strain (CARDIA) Answe r Date Recorded How hard is it for you to pa y for the very basics like food, housing, medical care, and heating? Not hard at all 06/29/2023 PHQ-2 Answer Date Recorded PHQ-2 Total Score 0 06/29/2023 [facility] of Occupat ional Health - Occupational Stress Questionnaire Answer Date Recorded Do you feel stress - tense, restless, nervous, or anxious, or unable to sleep at night because your mind is troubled all the time - these days? Not at all 06/29/2023 Exercise Vital Sign Answer Date Recorde d On average, how many days pe r week do you engage in moderate to strenuous exercise (like a brisk walk)? 2 days 06/29/2023 On average, how many minutes do you engage in exercise at this level? 30 min 06/29/2023 Hunger Vital Sign Answer Date Recorded Within the past 12 months, y ou worried that your food would run out before you got the money to buy more. Never true 06/29/19 24 Within the past 12 months, t he food you bought just didn't last and you didn't have money to get more. Never true 06/29/2023 PRAPARE - Transportation Answer Date Re corded In the past 12 months, has l ack of transportation kept you from medical appointments or from getting medications? No 06/20 In the past 12 months, has l ack of transportation kept you from meetings, work, or from getting things needed for daily living? No 06/29/2023 Housing Stability Vital Sign Answer Christian e Recorded In the last 12 months, was t here a time when you were not able to pay the mortgage or rent on time? No 06/29/2023 In the last 12 months, how many places have you lived? 1 06/29/2023 In the last 12 months, was t here a time when you did not have a steady place to sleep or slept in a snf (including now)? No 06/29/2023 Baxter Depression Scale Answer Date Recorded Baxter Depression Scale Total 0 06/29/2023 The thought of harming myself has occurred to me . Never 06/29/2023 Personal Safety Answer Date Recorded Have you ever been in or are you currently in a harmful physical or emotional relationship or is someone making you feel afraid or unsafe? Denies 06/29/2023 Comments No Sex and Gender Information Value Date Recorded Sex Assigned at Not on file Legal Sex Female 7:43 PM TOLL LINEMAN Gender Identity Not on file Sexual Orientation Not on file Last Filed Vital Signs Vital Sign Reading Time Taken Comments Blood Pressure 125/85 07/01/2023 7:25 AM TOLL LINEMAN Pulse 71 07/01/2023 7:25 AM TOLL LINEMAN Temperature 36.8 C (98.3 F) 07/01/2023 7:25 AM TOLL LINEMAN Respiratory Rate 16 07/01/2023 7:25 AM TOLL LINEMAN Oxygen Saturation 98% 06/30/2023 12:00 AM TOLL LINEMAN Inhaled Oxygen Concentration - - Weight 52.2 kg (115 lb) 12/14/2022 2:15 AM CDT Height 152.4 cm (5') 06/24/2023 4:27 PM TOLL LINEMAN Body Mass Index 22.46 09/19/2022 8:23 PM CDT Plan of Treatment Not on file Insurance [address] [place] [address] Advance Directives For more information, please contact: [phone] * Full Code (Latest Code Status on File) Date Activated Date Inactivated Comments 06/29/2023 9:35 PM 07/01/2023 7:54 PM * Full Code Date Activated Date Inactivated Comments 06/29/2023 8:08 AM 06/29/2023 9:35 PM Full CPR in case of cardiopulmonary arrest Care Teams Apparatus Repair Mechanic Relationship Specialty Start Date End Date Laura Rosario MD [address] [place] [address] PCP - General Obstetrics and Gynecology 12/14/22 Dung Lala MD [address] [place] [address] [address] [place] [address] Resident Family Medicine 05/29/23
--- OUTSIDE RECORDS SUMMARY | 2024-09-07 11:42 | XMS_ITS ---
Author Organization [facility] Address [address] [place] [address] Care Team Providers Care Pill Packer Name Role Phone Angelica Lundberg Primary Care Provider [phone] REASON FOR VISIT consent to treat Encounters Encounter Location Date Provider Diagnosis [address] [place] [address] 07/27/2023 Angelica Lundberg Plan Of Treatment No Information Progress Notes * GOLDSTEINKash CovarrubiasnDOB:1995 (28 yo F)Acc No.[id number]:07/27/2023 Patient: Jennifer LIMA :1995 A ge:28 Y S ex:Female [facility] [address] [place], [address] Subjective: * Chief Complaints: * C onsent to treat * HPI: N ew/Follow-up Patient Consult: Consent to treat [facility] reviewed [facility] [employer] Consent to Treat document with the patient. The patient verbally acknowledged understanding of the document and verbally voluntarily consents to treatment at [place]. Patient verbally authorizes [place] to bill for these services. 0 07/27/2023 . [facility] reviewed [facility] Consent to treat document with the patient's Parent or Guardian. The patient's parent or guardian verbally acknowledged understanding of the document and verbally voluntarily consents to treatment at [place]. Parent or Guardian also verbally authorizes [place] to bill for these services. 0 07/27/2023 C onsent obtained from Cait johnson * Medical History: * Surgical History: * Hospitalization/Major Diagno stic Procedure: * Medications: Objective: * Vitals: * Physical Examination: Assessment: Plan: * Treatment: * Procedure Codes: * true * Date: Generated for Maui ami/Facammieg/eTransmitting on: 0 09/07/2024 11:42 AM CDT History and Physical Notes * HPI (History of Present Illness) Category Sub-Category Detail Notes Category Not es New/Follow-up Patient Consult Consent to treat Staff reviewed [facility] [employer] Consent to Treat document with the patient. The patient verbally acknowledged understanding of the document and verbally voluntarily consents to treatment at [place]. Patient verbally authorizes [place] to bill for these services.: 07/27/2023 . Staff reviewed [facility] [employer] Consent to treat document with the patient's Parent or Guardian. The patient's parent or guardian verbally acknowledged understanding of the document and verbally voluntarily consents to treatment at [place]. Parent or Guardian also verbally authorizes [place] to bill for these services.: 07/27/2023 Consent obtained from: Jennifer
--- OUTSIDE RECORDS SUMMARY | 2024-09-07 11:42 | XMS_ITS | Patient Health Record ---
Author Organization [facility] Address [address] [place] [address] Care Team Providers Care Charge Poster Name Role Phone Angelica Lundberg Primary Care Provider [phone] Allergies Allergen (clinical drug ingredient) Drug/Non Drug Allergy documented on EMR Reaction Allergy Type Onset Date Status Latex Latex Unknown Allergy Active Reason For Referral No Information Social History Tobacco Use: Social History Observation Description Date Details (start date - stop date) Never Smoker NA - NA Tobacco Control (Standard) Question Answer Notes Tobacco use: Nonsmoker Problems Problem Type SNOMED Code ICD Code Onset Dates Problem Status W/U Status Risk Notes Problem Learning disorder (4168012) Learning disorder (F81.9) 07/27/2023 Active confirmed Encounters Encounter Location Date Provider Diagnosis [address] [place] [address] 09/20/2023 Angelica Lundberg Plan Of Treatment No Information Insurance Providers Payer Name Payer Address Payer Phone Subscriber Number Group Number Insured Name Patient Relationship to Insured Coverage Start Date Coverage End Date [facility] Attn Claims Department [address] [place] [address] [phone] [id number] WangKash covarrubiasn Self - patient is the insured 4 [facility] Attn Claims Department [address] [place] [address] [phone] [id number] Wang Jennifer Self - patient is the insured 4 Medical (General) History Surgical History Surgery Date(Month/Year) D/C Hospitalization History Reason Date(Month/Year) child [id number]
--- OUTSIDE RECORDS SUMMARY | 2024-09-07 11:42 | XMS_ITS | Clinical Summary ---
Author Organization [facility] Address [address] [place] [address] Care Team Providers Care Service Desk Lead Name Role Phone Laura Rosario MD Primary Care Provider [phone] Dung Lala MD Unavailable [phone] Allergies Active Allergy Reactions Criticality Noted Date Comments Latex Rash Medium 04/11/2021 Medications sertraline (ZOLOFT) 25 mg tablet Take 1 tablet (25 mg total) by mouth daily 06/23/2022 Active vit 37-lgaz-qtkqd-d montero 27mg iron- 800 mcg-250 mg capsule [...] drink = 0.6 oz pur e alcohol) [facility] Utilities Answer Date Recorded In the past 12 months has th e [employer], gas, oil, or water [employer] threatened to shut off services in your [...] How often do you attend chur or pentecostalism services? Never 06/29/2023 Do you belong to any clubs o r organizations such as nondenominational groups, unions, fraternal or athletic groups, or [...] Date Recorded PHQ-2 Total Score 0 06/29/2023 [facility] of Occupat ional Health - Occupational Stress [...] place to sleep or slept in a intermediate (including now)? No 06/29/2023 Dodge Depression Scale Answer Date Recorded Dodge Depression Scale Total 0 06/29/2023 The thought [...] on file Legal Sex Female 7:43 PM ROOM SERVICE BELLHOP Gender Identity Not on file Sexual Orientation Not on file Obstetrics History Para Term AB IAB SAB Ectopic Multiple Livin g Live Births 5 4 4 1 1 0 4 4 Date Outcome GA Total Labor Labor/2nd/3rd Weight Sex Type Anes PTL Niki A1 A5 Name Clin 2016 Term F Vag-Sp ont Livin g 2017 Term 39w 1d 5h 51m 1h 27m/4h 24m/ 3.41 kg (7 lb 8.3 oz) M Epidur al N Livin g 8 9 GOLDSTEIN ,BOY A (MIMI BERTHA) Ottoniel mccullough MD Complications:None Delivery Location:[facility]) Comments:NBS normal 2019 Term 38w 6d 0h 12m 0h 08m/0h 04m 3.03 kg (6 lb 10.9 oz) M Vag-Sp ont Epidur al N Livin g 8 9 GOLDSTEIN ,BABY BOY OSWALDO Ojeda rs CORN HUSK BALER- [employer]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 Complications:None [facility]) 2020 SAB 2023 Term 40w 1d 0h 48m 0h 44m/0h 04m 3.954 kg (8 lb 11.5 oz) F Vagina l Epidur al N Livin g 9 9 Angelique toi Mahmood Ancon a Hardyeni anToni MD Complications:None Delivery Location:[facility] ([facility]) Last Filed Vital Signs Vital Sign Reading Time Taken Comments Blood Pressure 125/85 07/01/2023 7:25 AM ROOM SERVICE BELLHOP Pulse 71 07/01/2023 7:25 AM ROOM SERVICE BELLHOP Temperature 36.8 C (98.3 F) 07/01/2023 7:25 AM ROOM SERVICE BELLHOP Respiratory Rate 16 07/01/2023 7:25 AM ROOM SERVICE BELLHOP Oxygen Saturation 98% 06/30/2023 12:00 AM ROOM SERVICE BELLHOP Inhaled Oxygen Concentration - - Weight 52.2 kg (115 lb) 12/14/2022 2:15 AM CDT Height 152.4 cm (5') 06/24/2023 4:27 PM ROOM SERVICE BELLHOP Body Mass Index 22.46 09/19/2022 8:23 PM CDT Plan of Treatment Health Maintenance Due Date Last Done Comments Cervical Cancer Screening 1995 Hepatitis C Screening 1995 Regular Well Visit/Exam 18-64 2015 Varicella Vaccines (2 of 2 - 13+ 2-dose series) 07/29/2023 07/01/2023 Covid-19 Vaccine ( season) 2024 03/16/2021, 02/16/2021 Influenza Vaccine (#1) 2024 6, 04/07/2016, 04/20/2011, Additional history exists Depression Screening 06/29/2024 06/29/2023, 06/24/2023, 06/02/2023, Additional history exists DTaP/Tdap/Td Vaccine (12 - Td or Tdap) 03/19/2033 03/19/2023, 01/11/2023, 02/12/2020, Additional history exists Hepatitis B Screening Completed 1995 , [birth year] HPV Vaccines Completed 04/07/2010, 11/19, 10/02/2009 Pneumococcal vaccine <65 Aged Out No longer eligible based on patient's age to complete this topic Insurance Advance Directives For more information, please contact: [phone] * Full Code (Latest Code Status on File) Date Activated Date Inactivated Comments 06/29/2023 9:35 PM 07/01/2023 7:54 PM * Full Code Date Activated Date Inactivated Comments 06/29/2023 8:08 AM 06/29/2023 9:35 PM Full CPR in case of cardiopulmonary arrest Care Teams Service Desk Lead Relationship Specialty Start Date End Date Laura Rosario MD [address] [place] [address] PCP - General Obstetrics and Gynecology 12/14/22 Dung Lala MD [address] [facility] [address] [place] [address] Resident Family Medicine 05/29/23
== END 2024-09-07 10:52 | disposition home or self-care (01) ==
PROVIDERS: Emergency Provider Nurse Practitioner Family; PCP Family Medicine
DX: Z76.0 Encounter for issue of repeat prescription (principal); S20.213D Contusion of bilateral front wall of thorax, subsequent encounter; Y09 Assault by unspecified means; F17.290 Nicotine dependence, other tobacco product, uncomplicated
CPT/HCPCS: 99211; G0463